=== PATIENT | female | born 1965 | race Caucasian/White ===

== ENCOUNTER → 2021-05-08 09:34 | Outpatient (BNVA) | payer OTHER, SELFPAY | PROVIDERS: Visit Provider Internal Medicine | DX: S50.01XA Contusion of right elbow, initial encounter (principal); S60.221A Contusion of right hand, initial encounter; W01.198A Fall on same level from slipping, tripping and stumbling with subsequent striking against other object, initial encounter; S61.431A Puncture wound without foreign body of right hand, initial encounter; L03.113 Cellulitis of right upper limb | CPT/HCPCS: 73080; 73130; 99203 ==

== ENCOUNTER → 2021-05-11 13:39 | Outpatient (BNVA) | payer OTHER, SELFPAY | PROVIDERS: Visit Provider Internal Medicine | DX: S60.221A Contusion of right hand, initial encounter (principal); S50.01XA Contusion of right elbow, initial encounter; S61.431A Puncture wound without foreign body of right hand, initial encounter; W18.30XA Fall on same level, unspecified, initial encounter | CPT/HCPCS: 99213 ==